=== PATIENT | male | born 2000 | race Caucasian/White ===

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

== ENCOUNTER 2022-10-25 10:27 | Outpatient (REF) | payer MEDICAID, SELFPAY ==
[2022-10-25 13:45] LABS: MANUAL DIFF FLAG NO
[2022-10-25 13:55] LABS: Basophils Absolute Auto 0.1 X10*3/uL (0.0-0.2); Basophils Percent Auto 1.3 % (0-2); Hematocrit 49.3 % (42.0-52.0); Hemoglobin 16.2 g/dl (14.0-18.0); Imm Gran Abs Auto 0.03 X10*3/uL (0.00-0.03); Imm Gran Pct Auto 0.4 % (0.0-0.4); Lymphocytes Absolute Auto 2.7 X10*3/uL (1.2-4.9); Lymphocytes Percent Auto 34.8 % (20-40); Mean Corpuscular HGB Conc 32.9 g/dl (31.0-36.0); Mean Corpuscular Hemoglobin 28.3 pg (27.0-33.0); Mean Corpuscular Volume 86.2 fL (80.0-98.0); Mean Platelet Volume 11.1 fL (9.4-12.4); Monocytes Absolute Auto 0.7 X10*3/uL (0.1-1.2); Monocytes Percent Auto 9.1 % (2-11); Neutrophils Absolute Auto 4.3 x10*3/uL (2.0-8.3); Neutrophils Percent Auto 54.4 % (45-73); Platelet Count 231 X10*3/uL (160-400); Red Blood Count 5.72 X10*6/uL (4.60-5.80); Red Cell Distribution Width 14.4 % (11.0-16.0); White Blood Count 7.8 X10*3/uL (4.8-10.8)
[2022-10-25 14:13] LABS: Estimated Average Glucose 105 mg/dL; Hemoglobin A1C 151.4048 umol/L; Hemoglobin A1c % 5.3 %
[2022-10-25 14:20] LABS: Alanine Aminotransferase 86 U/L (0-40); Albumin Level 4.8 g/dL (3.5-5.0); Alkaline Phosphatase 47 U/L (39-117); Anion Gap 14 (12-20); Aspartate Amino Transferase 146 U/L (5-37); Bilirubin Total 0.6 mg/dL (0.0-1.0); Blood Urea Nitrogen 14 mg/dL (9-16); Calcium 9.8 mg/dL (8.4-10.2); Carbon Dioxide 28 mmol/L (22-29); Chloride 103 mmol/L (96-108); Cholesterol 321 mg/dL; Estimated Glomerular Filt Rate > 60; Glucose Random 76 mg/dL (60-115); HDL Cholesterol 47 mg/dL; LDL Cholesterol Calculated 233 mg/dl; Sodium 141 mmol/L (135-145); Total Protein 7.7 g/dL (6.5-8.0); Triglycerides 208 mg/dL
[2022-10-25 14:34] LABS: Free T4 (Free Thyroxine) < 0.42 ng/dL (0.71-1.85); Thyroid Stimulating Hormone > 100.00 uIU/mL (0.32-4.0)
== END 2022-10-25 10:28 | disposition home or self-care (01) ==
LOC: HO.MANLDS 10:27
PROVIDERS: Visit Provider Physician Assistant
DX: E03.8 Other specified hypothyroidism (principal); E66.01 Morbid (severe) obesity due to excess calories; I10 Essential (primary) hypertension
CPT/HCPCS: 36415; 80053; 80061; 83036; 84439; 84443; 85025

== ENCOUNTER 2024-09-17 09:49 | Outpatient (REF) | payer SELFPAY ==
--- OUTSIDE RECORDS SUMMARY | 2024-09-17 10:36 | XMS_ITS | Continuity of Care Document ---
Author Organization [place] - [facility], [facility] Address [address] [place] [address] Assessment Encounter Date Assessment Date Assessment LastModified by Organization Details LastModified Time 09/17/2024 09/17/2024 Patient presented for medication refill. Patient tolerating medication well at current dose without adverse effects. Refilled as below. Discussed plan with patient, who expressed understanding . Follow up as noted below. [email or web address] Not available 09/17/2024 09:38:46 Plan of Treatment Reminders Order Date Submit Date Provider Last Modified By Organization Details Last Modified Time Details Appointments FOLLOW UP 15 2024 09:30A M PIPE PATTERSON Not available Not available Not available FOLLOW UP 15 2024 10:30A M PIPE PATTERSON Not available Not available Not available Lab CBC w/ auto diff 2024 025 [facility], [address] [place] [address], [id number], 09/17/2024 09:44:31 CMP, serum or plasma 2024 025 [facility], [address] [place] [address], [id number], 09/17/2024 09:44:31 lipid panel, serum 2024 025 [facility], [address] [place] [address], [id number], 09/17/2024 09:44:31 TSH + free T4, serum 2024 025 [facility], [address] [place] [address], [place], [id number], 09/17/2024 09:44:31 Referral None recorded . Procedures None recorded . Surgeries None recorded . Imaging None recorded . Medication Orders None recorded . Patient TargetsNo targets recorded. Patient InstructionsNo instructions recorded. Reason for Referral None Reported. Problems Name Problem SNOMED Code Status Onset Date Resolution Date Notes Provider Name and Address Organization Details Recorded Time Attention deficit hyperactiv ity disorder 735111219 Active 2020 Not Available [facility] 2 14:12:37 Hypertensi ve disorder 13381442 Active 2020 Not Available [facility] 2 14:12:37 Insomnia 839467562 Active 2020 Not Available [facility] 2 14:12:37 Hypothyroi dism 36775412 Active 2020 Not Available [facility] 2 14:12:37 Environmen lorraine allergy 734670841 Active 2020 Not Available [facility] 2 14:12:37 Asthma 262901053 Active 2020 Not Available [facility] 2 14:12:37 Morbid obesity 631866622 Active 2020 Not Available [facility] 2 14:12:37 Acute low back pain 708927305 Active 2022 PIPE PATTERSON [address] [place], [address], [facility] 3 09:44:05 Hyperlipid emia 30388860 Active 2022 PIPE PATTERSON [address] [place], [address], [facility] 3 13:56:56 Liver function tests outside reference range 776520568 Active 2022 PIPE PATTERSON [address] [place], [address], [facility] 3 13:57:10 Degenerati on of lumbar interverte bral disc 23951741 Active 2022 PIPE PATTERSON [address] [place], [address], [facility] 3 09:04:59 Eczema 09249340 Active 2022 Richard Boyle, DO [address] [place], [address], [facility] 3 11:28:32 Atopic dermatitis 02597029 Active 2022 Richard Boyle, DO [address] [place], [address], [facility] 3 11:28:50 Uncomplica megha moderate persistent asthma 300542830 Active 2024 PIPE PATTERSON [address] [place], [address], [facility] 5 09:44:19 Problem Notes None recorded. Procedures Surgical History Date Name Laterality Status Provider Name and Address Organization Details Recorded Time Adenoid Surgery completed Yamilet Rosenberg [facility] 07/14/2020 08:41:27 Imaging Results None recorded. Procedure Notes None recorded. Medical Equipment None Reported. Allergies No known drug allergies Medications Name Sig Start Date Stop Date Status Note LastModified by Organization Details LastModified Time cyclobenzap rine 10 mg tablet TAKE 1 TABLET (10 MG TOTAL) BY MOUTH 3 (THREE) TIMES A DAY NEEDED (MUSCLE). 09/17 completed Not Available Not Available Not Available amoxicillin 500 mg capsule TAKE 1 CAPSULE BY MOUTH 3 TIMES A DAY FOR 10 DAYS. TAKE WITH FOOD, YOGURT, PROBIOTIC S. FINISH ALL. 09/17 completed Not Available Not Available Not Available atorvastati n 40 mg tablet TAKE 1 TABLET BY MOUTH EVERY DAY active Not Available Not Available No t Available ibuprofen 800 mg tablet TAKE 1 TABLET BY MOUTH 3 (THREE) TIMES A DAY FOR 3 DAYS. THEN 3 TIMES A DAY NEEDED . 09/17 completed Not Available Not Available Not Available sulfamethox azole 800 mg-trimetho prim 160 mg tablet TAKE 1 TABLET BY MOUTH TWICE A DAY FOR 7 DAYS 09/17 completed Not Available Not Available Not Available levothyroxi ne 100 mcg tablet Take 1 tablet every day by oral route. 10/28 completed Not Available Not Available Not Available levothyroxi ne 125 mcg tablet Take 1 tablet every day by oral route. 10/28 completed Not Available Not Available Not Available levothyroxi ne 150 mcg tablet TAKE 1 TABLET BY MOUTH EVERY DAY FOR 30 DAYS active Not Available Not Available No t Available diclofenac sodium 75 mg tablet,jorge a yed release Take 1 tablet twice a day by oral route for 14 days. 10/25 completed Not Available Not Available Not Available methylpredn isolone 4 mg tablets in a dose pack TAKE 6 TABLETS THEN DECREASE BY 1 TABLET A DAY PER PACKAGE INSTRUCTI ONS 09/17 completed Not Available Not Available Not Available fluocinonid e 0.1 % topical cream APPLY THIN LAYER TO AFFECTED AREA ONCE DAILY 09/17 completed Not Available Not Available Not Available Zepbound 5 mg/0.5 mL subcutaneou s pen injector INJECT 0.5 ML (5 MG TOTAL) UNDER THE SKIN EVERY 7 (SEVEN) DAYS FOR 28 DAYS. active Not Available Not Available No t Available Zepbound 2.5 mg/0.5 mL subcutaneou s pen injector INJECT 0.5 ML (2.5 MG TOTAL) UNDER THE SKIN EVERY 7 DAYS 09/17 completed Not Available Not Available Not Available Vitals Date Recorded Body height Body mass index (BMI) Body weight Heart rate Oxygen saturation Oxygen saturation in Arterial blood by Pulse oximetry Systolic blood pressure Diastolic blood pressure Provider Name and Address Organization Details Last Updated DateTime 5 190.5 cm 56.1 kg/m2 067806. 33 g 66 /min 97 % 97 % 134 mm[Hg] 86 mm[Hg] [facility] 09:33:32 Social History Question Answer Notes LastModified by Organizat ion Details LastModified Time Tobacco Smoking Status Never Smoker [facility] 07/14/2020 10:24:57 What Was The Date Of Your Most Recent Tobacco Screening? 09/17/2024 [email or web address] Information not available 09/17/2024 Do You Or Have You Ever Used Any Other Forms Of Tobacco Or Nicotine? No [email or web address] Information not available 10/25/2022 Sex: Unknown Functional Status None recorded. Mental Status None recorded. Family History Relationship Description Onset Age of this Age Resolved Age Notes LastModified by Organization Details LastModified Time Paternal Grandfather Type 2 diabetes mellitus [email or web address] Not available 2020 08:42:59 Paternal Grandfather Hyperlipidem ia jvanasse Not available 2020 08:43:12 Paternal Grandfather Malignant tumor of colon jvanasse Not available 2020 08:43:23 Paternal Grandmother Type 2 diabetes mellitus jvanasse Not available 2020 08:42:59 Father Hyperlipidem ia jvanasse Not available 2020 08:43:31 Paternal Uncle Malignant tumor of testis jvanasse Not available 2020 08:44:03 Paternal Uncle Fredi's disease jvanasse Not available 2020 08:44:15 Brother Attention deficit hyperactivit y disorder [email or web address] Not available 07/14 08:44:24 Maternal Grandmother Neoplasm of ovary jvanasse Not available 2020 08:44:36 Maternal Grandmother Malignant neoplastic disease jvanasse Not available 2020 08:44:49 Maternal Grandfather Malignant tumor of colon jvanasse Not available 2020 08:45:13 Mother Hypothyroidi sm jvanasse Not available 2020 08:45:27 Mother Pulmonary embolism jvanasse Not available 2020 08:45:39 Mother Bypass of stomach jvanasse Not available 2020 08:45:50 Mother Attention deficit hyperactivit y disorder jvanasse Not available 07/14 08:45:57 Medical History No medical history recorded. Immunizations Vaccine Type Date Status Note Provider Nam e and Address Organization Details Recorded Time COVID-19, mRNA, LNP-S, PF, 30 mcg/0.3 mL dose 09/20/2020 completed [place] Arguello [facility] 01/15/2021 15:58:49 COVID-19, mRNA, LNP-S, PF, 30 mcg/0.3 mL dose 10/11/2020 completed Roseann valles [facility] 01/15/2021 15:58:57 COVID-19, mRNA, LNP-S, PF, 30 mcg/0.3 mL dose 06/28/2021 completed Yamilet valles [facility] 06/29/2021 14:14:09 Past Encounters Encounter ID Performer Location Encounter Start Date Encounter Closed Date Diagnosis/Indication Diagnosis SNOMED-CT Code Diagnosis ICD10 Code Diagnosis Note [id number] Richard Boyle [facility] [address],Anisa kraft [facility] [place] [address] 09/17/2024 09:24:14 09/17/2024 09:47:01 Renewal of prescription 409590160 Z76.0 will refill after lab work comes back Depression screening 171 056228 Z13.31 negative Hypothyroidism 39146396 E03.8 needs with Hypertensive disorder 38 838636 I10 agreed to lab work Liver func tion tests outside reference range 086918577 R94.5 will recheck levels Morbid obesity 210644434 E66.01 agreed to lab workoverdu e for it Hyperlipidemia 84077677 E78.5 needs lab work Uncomplica megha moderate persistent asthma 668162005 J45.40 very stable Health Concerns Section Related Observation LastModified by Organization Detai ls LastModified Time None Recorded Concern Status LastModified by Organization Details LastModified Time None Recorded Payers Encounter Date Sequence Insurance Name Policy Number Policy Ramirez Covered Member ID Ramirez Member ID Guarantor Name 09/17/2024 1 [place] [id number] Niall Sawyer [id number] Niall Sawyer Notes Date Note Type Note Provider Name a nd Address Organization Details Recorded Time 09/17/2024 text/html medications HLD: the patient needs lab work, is currently on the atorvastatin 40 mg Obesity: the patient reports that he was started on Zepbound 5 mg, 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 The patient denies suicidal ideation, thoughts of hurting themselves or others. Their mood is appropriate, they show good judgement and clear understanding of the conversation. They are orientated to time, place and person. They are not expressing any concerning thoughts or actions that would need further investigation and treatment for mental health. PIPE PATTERSON [address] [place] [address], [phone], [facility] 09/17/2024 09:47:00
--- OUTSIDE RECORDS SUMMARY | 2024-09-17 10:36 | XMS_ITS | Data Portability ---
Author Organization [facility] Home Service Address [address] [facility] [place] [address] Assessment Encounter Date Assessment Date Assessment LastModified by Organization Details LastModified Time 07/14/2020 07/14/2020 [address] [place] [address] (HASH SLINGER) MDM MODERATE MUST MEET 2 OUT OF 3 ELEMENTS: PROBLEMS, DATA OR RISK ELEMENT 1: PROBLEMS ADDRESSED OR 2 OR MORE STABLE CHRONIC ILLNESSES OR OR OR ELEMENT 2: DATA MUST MEET 1 OF 3 CATEGORIES CATEGORY 1: REVIEW OF PRIOR EXTERNAL NOTES, REVIEW OF RESULTS, ORDERING OF EACH TEST, ASSESSMENT REQUIRING INDEPENDENT HISTORIAN OR CATEGORY 2: OR CATEGORY 3: ELEMENT 3: RISK RISK OF COMPLICATIONS AND/OR MORBIDITY OR MORTALITY OF PATIENT MANAGEMENT PROVIDER MUST THOROUGHLY DOCUMENT EACH ELEMENT THAT IS COVERED Not available 07/14/2020 10:54:38 01/15/2021 01/15/20[place] [id number] [place] [id number] (HASH SLINGER) MDM MODERATE MUST MEET 2 OUT OF 3 ELEMENTS: PROBLEMS, DATA OR RISK ELEMENT 1: PROBLEMS ADDRESSED 1 OR MORE CHRONIC ILLNESS WITH EXACERBATION OR 2 OR MORE STABLE CHRONIC ILLNESSES OR 1 UNDIAGNOSED NEW PROBLEM OR 1 ACUTE ILLNESS W/SYMPTOMS OR 1 ACUTE COMPLICATED INJURY ELEMENT 2: DATA MUST MEET 1 OF 3 CATEGORIES CATEGORY 1: REVIEW OF PRIOR EXTERNAL NOTES, REVIEW OF RESULTS, ORDERING OF EACH TEST, ASSESSMENT REQUIRING INDEPENDENT HISTORIAN OR CATEGORY 2: INDEPENDENT INTERPRETATION OF TESTS BY ANOTHER PHYSICIAN OR SPECIALIST OR CATEGORY 3: DISCUSSION OF MGT OR TEST INTERPRETATION W/EXTERNAL PHYSICIAN OR SPECIALIST ELEMENT 3: RISK RISK OF COMPLICATIONS AND/OR MORBIDITY OR MORTALITY OF PATIENT MANAGEMENT PROVIDER MUST THOROUGHLY DOCUMENT EACH ELEMENT THAT IS COVERED Not available 01/15/2021 16:22:59 01/31/2023 01/31/2023 [id number] [place] [id number] (HASH SLINGER) : MDM LOW MUST MEET 2 OF 3 ELEMENTS: PROBLEMS, DATA OR RISK ELEMENT 1: PROBLEMS ADDRESSED (LOW): 2 OR MORE SELF-LIMITED OR MINOR PROBLEMS OR 1 STABLE CHRONIC ILLNESS OR 1 ACUTE UNCOMPLICATED ILLNESS OR INJURY ELEMENT 2: DATA TO BE REVISED AND ANALYZED (LOW) MUST MEET 1 OF 2 CATEGORIES: CATEGORY 1. REVIEW OF PRIOR EXTERNAL NOTES/RESULTS, ORDERING OF TEST(S) CATEGORY 2. ASSESSMENT REQUIRING INDEPENDENT HISTORIAN(S) INCLUDE WHO THE HISTORIAN IS AND RELATION TO PT AND WHY PT IS UNABLE TO GIVE COMPLETE HISTORY ELEMENT 3: RISK (LOW) RISK OF COMPLICATIONS AND/OR MORBIDITY OR MORTALITY OF PATIENT MANAGEMENT PROVIDER MUST THOROUGHLY DOCUMENT ALL OF THE ELEMENTS COVERED Not available 01/31/2023 11:28:24 09/17/2024 09/17/2024 Patient presente d for medication refill. Patient tolerating medication well at current dose without adverse effects. Refilled as below. Discussed plan with patient, who expressed understanding. Follow up as noted below. [email or web address] Not available 09/17/2024 09:38:46 Plan of Treatment Reminders Order Date Submit Date Provider Last Modified By Organization Details Last Modified Time Details Appointments FOLLOW UP 2024 09:30A M PIPE PATTERSON Not available Not available Not available FOLLOW UP 2024 10:30A M PIPE PATTERSON Not available Not available Not available Lab CBC w/ auto diff 2024 025 [facility], [address] [place] [address], [id number], 09/17/2024 09:44:31 CMP, serum or plasma 2024 025 [facility], [address] [place] [address], [id number], 09/17/2024 09:44:31 lipid panel, serum 2024 025 [facility], [address] [place] [address], [id number], 09/17/2024 09:44:31 TSH + free T4, serum 2024 025 [facility], [address] [place] [address], [id number], 09/17/2024 09:44:31 hemoglobi n A1c, QN, blood 2022 023 [facility], [address] [place] [address], [id number], 2022 11:40:25 lipid panel, serum 2022 023 [facility], [address] [place] [address], [id number], 2022 11:40:25 CMP, serum or plasma 2022 023 [facility], [address] [place] [address], [id number], 2022 11:40:25 CBC w/ auto diff 2022 023 [facility], [address] [place] [address], [id number], 2022 11:40:26 TSH + free T4, serum 2022 023 [facility], [address] [place] [address], [id number], 2022 11:40:25 TSH, serum or plasma 2020 021 [facility], [address] [place] [address], [id number], 01/15/2021 16:27:56 CMP, serum or plasma 2020 021 [facility], [address] [place] [address], [id number], 07/17/2020 11:28:02 TSH + free T4, serum 2020 021 [facility], [address] [place] [address], [id number], 07/17/2020 11:28:02 Referral None recorded. Procedures None recorded. Surgeries None recorded. Imaging XR, lumbosacr al spine, 2 or 3 view 2022 023 [email or web address] Not available 11/08/2022 08:49:37 Medication Orders fluocinon joselo 0.1 % topical cream 2022 023 [email or web address] [facility]2024, [address] [place] [address], [id number], 09/17/2024 09:28:11 Medrol (Mike) 4 mg tablets in a dose pack 2022 023 [email or web address] [facility]2024, [address] [place] [address], [id number], 09/17/2024 09:28:19 diclofena c sodium 75 mg tablet,de layed release 2020 021 [email or web address] [facility]2024, [address] [place], [address], 10/25/2022 09:36:12 Patient TargetsNo targets recorded. Patient Instructions Encounter Date Encounter Id Patient Instructions Last Modified By Organization Details Last Modified Time 01/15/2021 [id number] hypothyroidism: care instructions Not available 01/15/2021 16:26:47 01/31/2023 [id number] hypothyroidism: care instructions Not available 01/31/2023 11:33:13 high cholesterol : care instructions Not available 01/31/2023 11:33:13 Reason for Referral None Reported. Results Created Date Observation Date Name Description Value Unit Range Abnormal Flag Note LastModifiedBy Organization Detail LastModifiedTime 11/09/1911/08/2022 US, abdom en, compl ete No observ ation record ed. [facility] [address] [facility] [address], [place], [address], 01/31/2023 11:19:56 11/11/19 23 11/08/2022 XR, lumbo sacra l spine , 2 or 3 view No observ ation record ed. [facility] [address] [place] [address], [place], [address], 01/31/2023 11:19:56 Result Notes None recorded. Problems Name Problem SNOMED Code Status Onset Date Resolution Date Notes Provider Name and Address Organization Details Recorded Time Attention deficit hyperactiv ity disorder 350563352 Active 2020 Not Available [facility] 2 14:12:37 Hypertensi ve disorder 49971372 Active 2020 Not Available [facility] 2 14:12:37 Insomnia 852832587 Active 2020 Not Available [facility] 2 14:12:37 Hypothyroi dism 19591095 Active 2020 Not Available [facility] 2 14:12:37 Environmen lorraine allergy 497878399 Active 2020 Not Available [facility] 2 14:12:37 Asthma 458510144 Active 2020 Not Available [facility] 2 14:12:37 Morbid obesity 353234221 Active 2020 Not Available [facility] 2 14:12:37 Acute low back pain 233881922 Active 2022 PIPE PATTERSON [address] [place] [address], [address], [facility] 3 09:44:05 Hyperlipid emia 98503218 Active 2022 PIPE PATTERSON [address] [place] [address], [address], [facility] 3 13:56:56 Liver function tests outside reference range 065425747 Active 2022 PIPE PATTERSON [address] [place] [address], [address], [facility] 3 13:57:10 Degenerati on of lumbar interverte bral disc 35443993 Active 2022 PIPE PATTERSON [address] [place] [address], [address], [facility] 3 09:04:59 Eczema 23566261 Active 2022 Richard Boyle DO [address] [place], [address], [facility] 3 11:28:32 Atopic dermatitis 60448638 Active 2022 Richard Boyle DO [address] [place], [address], [facility] 3 11:28:50 Uncomplica megha moderate persistent asthma 745625453 Active 2024 PIPE PATTERSON [address] [place], [address], [facility] 5 09:44:19 Problem Notes None recorded. Procedures Surgical History Date Name Laterality Status Provider Name and Address Organization Details Recorded Time Adenoid Surgery completed Yamilet Rosenberg [facility] 07/14/2020 08:41:27 Imaging Results Imaging Date Name Status LastModified by Organization Details LastModified Time 11/08/2022 US, abdomen, complete completed [address], [place], [address], 01/31/2023 11:19:56 11/08/2022 XR, lumbosacral spine, 2 or 3 view [address], [address], 01/31/2023 11:19:56 Procedure Notes None recorded. Medical Equipment None [...] Recorded Body height Body mass index (BMI) [Percentile] Per age and sex Body mass index (BMI) Body weight Heart rate Oxygen saturation Oxygen saturation in Arterial blood by Pulse oximetry Systolic blood pressure Diastolic blood pressure Provider Name and Address Organization Details Last Updated DateTime 1 187.96 cm 99 % 56.2 kg/m2 514675. 3 g 88 /min 98 % 98 % 150 mm[Hg] 82 mm[Hg] Yamilet Rosenberg [facility] 1 10:25:52 Date Recorded Body height Body mass index (BMI) [Percentile] Per age and sex Body mass index (BMI) Body weight Oxygen saturation Oxygen saturation in Arterial blood by Pulse oximetry Heart rate Systolic blood pressure Diastolic blood pressure Provider Name and Address Organization Details Last Updated DateTime 1 187.96 cm 99 % 54 kg/m2 619394. 67 g 97 % 97 % 107 /min 120 mm[Hg] 80 mm[Hg] Roseann Pompa [facility] 1 15:54:57 Date Recorded Body height Body mass index (BMI) [Percentile] Per age and sex Body mass index (BMI) Body weight Heart rate Oxygen saturation Oxygen saturation in Arterial blood by Pulse oximetry Systolic blood pressure Diastolic blood pressure Provider Name and Address Organization Details Last Updated DateTime 3 190.5 cm 99 % 59.4 kg/m2 011970. 38 g 100 /min 97 % 97 % 110 mm[Hg] 74 mm[Hg] Nadine Rushing [facility] 3 09:38:07 Date Recorded Body height Body mass index (BMI) Body weight Oxygen saturation Oxygen saturation in Arterial blood by Pulse oximetry Heart rate Systolic blood pressure Diastolic blood pressure Provider Name and Address Organization Details Last Updated DateTime 3 190.5 cm 57.2 kg/m2 473954. 31 g 97 % 97 % 73 /min 120 mm[Hg] 82 mm[Hg] Richard Boyle, DO [address] [place], [address], [facility] 3 10:59:40 Date Recorded Body height Body mass index (BMI) Body weight Heart rate Oxygen saturation Oxygen saturation in Arterial blood by Pulse oximetry Systolic blood pressure Diastolic blood pressure Provider Name and Address Organization Details Last Updated DateTime 5 190.5 cm 56.1 kg/m2 935595. 33 g 66 /min 97 % 97 % 134 mm[Hg] 86 mm[Hg] Samantha Kelly [facility] 5 09:33:32 Social History Question Answer Notes LastModified by Organizat ion Details LastModified Time Tobacco Smoking Status Never Smoker Yamilet Rosenberg [facility] 07/14/2020 10:24:57 What Was The Date Of Your Most Recent Tobacco Screening? 09/17/2024 [email or web address] Information not available 09/17/2024 Do You Or Have You Ever Used Any Other Forms Of Tobacco Or Nicotine? No [email or web address] Information not available 10/25/2022 Sex: Unknown Functional [...] PF, 30 mcg/0.3 mL dose 09/20/2020 completed Roseann Pompa null, [facility] 01/15/2021 15:58:49 COVID-19, mRNA, LNP-S, PF, 30 mcg/0.3 mL dose 10/11/2020 completed Roseann Pompa null, [facility] 01/15/2021 15:58:57 COVID-19, mRNA, LNP-S, PF, 30 mcg/0.3 mL dose 06/28/2021 completed Yamilet Rosenberg null, [facility] 06/29/2021 14:14:09 Past Encounters Encounter ID Performer Location Encounter Start Date Encounter Closed Date Diagnosis/Indication Diagnosis SNOMED-CT Code Diagnosis ICD10 Code Diagnosis Note [id number] Richard Boyle [facility] [address] [facility], [place] [address] 07/14/2020 10:15:44 07/14/2020 11:07:58 Hypertensive disorder 11676855 I10 will need to keep a close eye in this and will need to have him check it from time to time Hypothyroidism 71747449 E03.9 will need to be checked as this has not been done in years Attention deficit hyperactivity disorder 847678642 F90.9 states is no longer on any meds Insomnia 971606869 G47.0 0 was apparent while on stimulants for ADD since off he sleeps fine now [id number] Richard Boyle [facility] [address] [facility] [address] 01/15/2021 15:20:11 01/15/2021 16:33:29 Hypertensive disorder 02459437 I10 will need to keep a close eye in this and will need to have him check it from time to time Hypothyroidism 72159697 E03.9 last lab good taking med without problems Strain of left pectoral muscle 2685528842 4682013 S29.011A [id number] Richard Boyle [facility] [address] [facility] [address] 10/25/2022 09:28:23 10/25/2022 10:12:18 Acute low back pain 760098606 M54.59 agreed to XR Hypothyroidism 20623741 E03.8 needs his thyroid retested, overdue Morbid obesity 714322005 E66.01 agreed to lab workoverdu e for it Hypertensive disorder 38 530451 I10 agreed to lab work [id number] Richard Boyle [facility] [address] [facility], [place] [address] 01/31/2023 10:48:13 01/31/2023 11:39:18 Hyperlipidemia 30198939 E78.5 we will rechk Hypertensive disorder 38 481201 I10 will need to keep a close eye in this and will need to have him check it from time to time Hypothyroidism 98506829 E03.8 last lab good taking med without problems Atopic dermatitis 471670 01 L20.9 apply bid [id number] Richard Boyle [facility] [address] [facility] [address] [place] [address] 09/17/2024 09:24:14 09/17/2024 09:47:01 Renewal of prescription 384550026 Z76.0 will refill after lab work comes back Depression screening 171 251594 Z13.31 negative Hypothyroidism 77899567 E03.8 needs with Hypertensive disorder 38 293345 I10 agreed to lab work Liver func tion tests outside reference range 641296498 R94.5 will recheck levels Morbid obesity 115306456 E66.01 agreed to lab workoverdu e for it Hyperlipidemia 41924060 E78.5 needs lab work Uncomplica megha moderate persistent asthma 898283520 J45.40 very stable Health Concerns Section Related Observation LastModified by Organization Detai ls LastModified Time None Recorded Concern Status LastModified by Organization Details LastModified Time None Recorded Advance Directives Directive None Recorded Payers Encounter Date Sequence Insurance Name Policy Number Policy Ramirez Covered Member ID Ramirez Member ID Guarantor Name 07/14/2020 1 [place] [facility] Niall Crowder Digna [id number] Niall Digna 01/15/2021 1 [place] [facility] Niall Crowder Digna [id number] Niallbret Sawyer 10/25/2022 1 [place] [id number] Niall Sawyer [id number] Niall Sawyer 01/31/2023 1 [place] [id number] 03 Niall Sawyer [id number] Niall Sawyer 09/17/2024 1 [place] [id number] 03 Niall Sawyer [id number] Niall Digna Notes Date Note Type Note Provider Name a nd Address Organization Details Recorded Time 07/14/2020 text/html Hypertension F/UReported bypatient.Medicati ons:taking medications as directed; no side effects from medication Lifestyle:regular exercise; limiting/avoiding salt; compliant with low salt diet Associated Symptoms:no dizziness; no lightheadedness; no chest pain; no shortness of breath; no palpitations; no edema; no calf pain with exertion; no headache here for rechk of his bp and to chk lab etc Richard Boyle DO [address] [place], [address], [facility] 07/14/2020 10:55:48 01/15/2021 text/html here for rechk h as lost 17 lbs according to our scalehas been having pain in his left pectoralis muscle iup into shoulder and upper armpain has been present almost a year Richard Boyle DO [address] [place], [address], [facility] 01/15/2021 16:28:21 10/25/2022 text/html c/o lumbar pain patient is morbidly obese at 475 lbs with low back pain starting several months ago after mulching with his fatherpain only with movement and pressure on the lumbar spinefine at rest UC gave him MSK relaxer and ibu without relief of symptoms he may have degenerative changes related to weight exacerbated by a stress injury from the yard workcannot exclude discogenic disease either agreed to XR PIPE PATTERSON [address] [place], [address], [facility] 10/25/2022 09:53:15 01/31/2023 text/html here for rechchalino carreno nd is doing fairadmits to be feeling down at timeswgt is an issue Richard Boyle DO [address] [facility], [place], [address], [facility] 01/31/2023 11:34:49 09/17/2024 text/html medications HLD: the patient needs lab work, is currently on the atorvastatin 40 mg Obesity: the patient reports that he was started on Zepbound 5 mg, was [facility] by [facility] 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 PIPE PATTERSON [address] [facility], [place], [address], [facility] 09/17/2024 09:47:00
--- OUTSIDE RECORDS SUMMARY | 2024-09-17 10:36 | XMS_ITS | Clinical Summary ---
Author Organization [facility] up Address [address] [place] [address] Phone Care Team Providers Care Commissary Assistant Name Role Phone Richard Boyle DO Primary Care Provider [phone] Allergies No known active allergies Medications tirzepatide, weight loss, (Zepbound) 5 mg/0.5 mL injectionIndica tions:Class 3 severe obesity due to excess calories without serious comorbidity with body mass index (BMI) of 50.0 to 59.9 in adult ([facility] V24, [facility] V28) Inject 0.5 mL (5 mg total) under the skin every 7 (seven) days for 28 days. 2 mL 5 09/28/19 25 Active tirzepatide, weight loss, (Zepbound) 2.5 mg/0.5 mL injectionIndica tions:Class 3 severe obesity due to excess calories without serious comorbidity with body mass index (BMI) of 50.0 to 59.9 in adult ([facility] V24, [facility] V28) Inject 0.5 mL (2.5 mg total) under the skin every 7 (seven) days. 2 mL 5 08/31/19 25 Discontinued Active Problems Problem Noted Date Diagnosed Date Class 3 severe obesity with body mass index (BMI) of 50.0 to 59.9 in adult ([facility] V24, [facility] V28) 07/28/2024 Encounters Date Type Department Care Team Description 08/30/2024 9:30 AM EDT Telemedicine Bariatric Surgery - [address] [place] [address] Class 3 severe obesity with body mass index (BMI) of 50.0 to 59.9 in adult, unspecified obesity type, unspecified whether serious comorbidity present ([facility] V24, [facility] V28) (Primary Dx) 07/28/2024 10:30 AM EDT Office Visit Bariatric Surgery [address] [phone] Brisa Irving PA Class 3 severe obesity due to excess calories without serious comorbidity with body mass index (BMI) of 50.0 to 59.9 in adult ([facility] V24, [facility] V28) (Primary Dx) from Last 3 Months Social History Tobacco Use Types Packs/Day Years Used Date Smoking Tobacco: Never Assessed Sex and Gender Information Value Date Recorded Sex Assigned at Not on file Legal Sex Male 3:47 PM EDT Gender Identity Not on file Sexual Orientation Not on file Last Filed Vital Signs Vital Sign Reading Time Taken Comments Blood Pressure 132/77 07/28/2024 10:30 AM EDT Pulse 90 07/28/2024 10:30 AM EDT Temperature 36.6 ??C (97.8 ??F) 07/28/2024 10:30 AM E DT Respiratory Rate - - Oxygen Saturation - - Inhaled Oxygen Concentration - - Weight 208 kg (459 lb) 08/30/2024 9:00 AM EDT Height 190.5 cm (6' 3 ) 07/28/2024 10:30 AM EDT Body Mass Index 57.37 07/28/2024 10:30 AM EDT Plan of Treatment Upcoming Encounters Date Type Department Care Team (Late st Contact Info) Description 2024 10:00 AM EDT Office Visit Bariatric Surgery - [address] [address] Brisa Irving PA [address] [address] 11/15/2024 9:30 AM EDT Telemedicine Bariatric Surgery - [address] [phone] Nelia Khoury, RD [address] [address] Health Maintenance Due Date Last Done Comments HPV Vaccines (1 - Male 3-dose series) 2016 Meningococcal B Vaccine (1 of 2 - Standard) 2017 COVID-19 Vaccine (4 - season) 2024 06/28/2021, 10/11/2020, 09/20/2020 Cholesterol Screening (Lipid Panel) 03/05/2024 Depression Screening 03/05/2024 HIV Screening 03/05/2024 Hepatitis C Screening 03/05/2024 Social Influencers of Health Screening 03/05/2024 Influenza Vaccine (Season Ended) 2025 DTaP,Tdap,and Td Vaccines (8 - Td or Tdap) 07/27/2029 07/28/2019, 11/12/2012, 11/01/2005, Additional history exists Hepatitis B Vaccines Completed 08/10/2002, 2001, 2001 HIB Vaccines Completed 11/01/2002, 04/19, 03/10/2002 Pneumococcal Vaccine: Pediatrics (0 to 5 Years) and At-Risk Patients (6 to 64 Years) Completed 05/13/2003, 11/01/2002, 03/10/2002, Additional history exists MMR Vaccines Completed 11/01/2005, 02/11/2003 IPV Vaccines Completed 10/29/2006, 10/17, 03/10/2002, Additional history exists Varicella Vaccines Completed 10/30/2007, 11/01/2002 Hepatitis A Vaccines Aged Out No long er eligible based on patient's age to complete this topic Meningococcal ACWY Vaccine Aged Out N o longer eligible based on patient's age to complete this topic RSV Immunization Patients Under 20 months Aged Out No longer eligible based on patient's age to complete this topic Insurance [facility]) Care Teams Commissary Assistant Relationship Specialty Start Date End Date Richard Boyle DO [address] [facility] [place], [place] PCP - General Internal Medicine 07/28/24
[2024-09-17 13:25] LABS: MANUAL DIFF FLAG NO
[2024-09-17 13:52] LABS: Basophils Absolute Auto 0.1 X10*3/uL (0.0-0.2); Basophils Percent Auto 0.5 % (0-2); Hematocrit 42.5 % (42.0-52.0); Imm Gran Abs Auto 0.03 X10*3/uL (0.00-0.03); Imm Gran Pct Auto 0.3 % (0.0-0.4); Lymphocytes Absolute Auto 2.3 X10*3/uL (1.2-4.9); Lymphocytes Percent Auto 23.8 % (20-40); Mean Corpuscular HGB Conc 32.9 g/dl (31.0-36.0); Mean Corpuscular Hemoglobin 28.3 pg (27.0-33.0); Mean Corpuscular Volume 85.9 fL (80.0-98.0); Mean Platelet Volume 11.2 fL (9.4-12.4); Monocytes Absolute Auto 0.9 X10*3/uL (0.1-1.2); Monocytes Percent Auto 8.7 % (2-11); Neutrophils Absolute Auto 6.5 x10*3/uL (2.0-8.3); Neutrophils Percent Auto 66.7 % (45-73); Platelet Count 268 X10*3/uL (160-400); Red Blood Count 4.95 X10*6/uL (4.60-5.80); Red Cell Distribution Width 12.7 % (11.0-16.0); White Blood Count 9.8 X10*3/uL (4.8-10.8)
[2024-09-17 14:13] LABS: Alanine Aminotransferase 45 U/L (0-40); Albumin Level 4.7 g/dL (3.5-5.0); Alkaline Phosphatase 52 U/L (39-117); Anion Gap 15 (12-20); Aspartate Amino Transferase 43 U/L (5-37); Bilirubin Total 0.3 mg/dL (0.0-1.0); Blood Urea Nitrogen 16 mg/dL (9-16); Calcium 9.7 mg/dL (8.4-10.2); Carbon Dioxide 25 mmol/L (22-29); Chloride 106 mmol/L (96-108); Cholesterol 163 mg/dL (<200); Estimated Glomerular Filt Rate > 60; Free T4 (Free Thyroxine) 0.67 ng/dL (0.71-1.85); Glucose Random 84 mg/dL (60-115); HDL Cholesterol 38 mg/dL (>40); LDL Cholesterol Calculated 103 mg/dL (<100); Sodium 142 mmol/L (135-145); Thyroid Stimulating Hormone 48.32 uIU/mL (0.32-4.0); Total Protein 7.6 g/dL (6.5-8.0); Triglycerides 114 mg/dL (<150)
== END 2024-09-17 09:50 | disposition home or self-care (01) ==
LOC: HO.MANLDS 09:49
PROVIDERS: Visit Provider Physician Assistant
DX: E03.8 Other specified hypothyroidism (principal); E78.5 Hyperlipidemia, unspecified
CPT/HCPCS: 36415; 80053; 80061; 84439; 84443; 85025

== ENCOUNTER 2025-01-03 10:51 | Outpatient (REF) | payer BC, SELFPAY ==
--- OUTSIDE RECORDS SUMMARY | 2025-01-03 11:55 | XMS_ITS | Encounter Summary ---
Author Organization [facility] Address [address] [place] [address] Phone Care Team Providers Care Country Singer Name Role Phone Richard Boyle DO Primary Care Provider [phone] Bigda, Richard Hebert DO Primary Care Provider [phone] Bigda, Richard Hebert DO Unavailable Bigda, Richard Hebert DO Unavailable Encounter Details Date Type Department Care Team (Late st Contact Info) Description 04/07/2019 Ancillary Orders Virtual Department [address] [place] [address] Eber Reynolds PA [address] [place] [address] [email or web address] Social History Tobacco Use Types Packs/Day Years Used Date Smoking Tobacco: Never Assessed Sex and Gender Information Value Date Recorded Sex Assigned at Not on file Legal Sex Male 5:37 AM EST Gender Identity Not on file Sexual Orientation Not on file documented as of this encounter Plan of Treatment Not on file documented as of this encounter Visit Diagnoses Not on filedocumented in this encounter Care Teams Country Singer Relationship Specialty Start Date End Date Richard Boyle DO PCP - General 03/04/17 05/24/22 Richard Boyle DO [email or web address] PCP - General Internal Medicine 05/25/22 Richard Boyle DO [email or web address] 05/25/22 Richard Boyle DO [address] [place] [id number] [email or web address] Insurance Assigned Provider 07/23/19 10/05/22 documented as of this encounter Additional Source Comments The information contained in this document represents components of the legal health record. It is not the complete legal health record.[facility]
--- OUTSIDE RECORDS SUMMARY | 2025-01-03 11:55 | XMS_ITS | Clinical Summary ---
Author Organization [facility] up Address [address] [place] [address] Phone Care Team Providers Care Hydraulic Auto Jack Mechanic Name Role Phone Richard Boyle DO Primary Care Provider [phone] Allergies No known active allergies Medications tirzepatide, weight loss, (Zepbound) 10 mg/0.5 mL injectionIndica tions:Morbid obesity (CMS/HCC V24, CMS/HCC V28) Inject 0.5 mL (10 mg total) under the skin every 7 (seven) days. 2 mL 5 01/21/20 25 Active tirzepatide, weight loss, (Zepbound) 7.5 mg/0.5 mL injectionIndica tions:Morbid obesity (CMS/HCC V24, CMS/HCC V28) Inject 0.5 mL (7.5 mg total) under the skin every 7 (seven) days. 2 mL 5 12/22/19 25 Discontinued Active Problems Problem Noted Date Diagnosed Date Class 3 severe obesity witho ut serious comorbidity with body mass index (BMI) of 50.0 to 59.9 in adult (CMS/HCC V24, CMS/HCC V28) 07/28/2024 Encounters Date Type Department Care Team Description 11/15/2024 9:30 AM EDT Telemedicine Bariatric Surgery - [address] [place] [address] Nelia Khoury, BRAEDEN Class 3 severe obesity without serious comorbidity with body mass index (BMI) of 50.0 to 59.9 in adult, unspecified obesity type (CMS/HCC V24, CMS/HCC V28) (Primary Dx) from Last 3 Months [...] 90 07/28/2024 10:30 AM EDT Temperature 36.6 C (97.8 F) 07/28/2024 10:30 AM EDT Respiratory Rate - - Oxygen Saturation - - Inhaled Oxygen Concentration - - Weight 199 kg (438 lb) 11/15/2024 9:00 AM EDT Height 190.5 cm (6' 3 ) 07/28/2024 10:30 AM EDT Body Mass Index 54.75 07/28/2024 10:30 AM EDT Plan of Treatment Upcoming Encounters Date Type Department Care Team (Late st Contact Info) Description 02/04/2025 12:00 PM EDT Telemedicine Bariatric Surgery [address] [phone] Nelia Khoury, RD [address] [phone] 02/09/2025 9:00 AM EDT Office Visit Bariatric Surgery [address] [phone] Brisa Irving PA [address] [address] Health Maintenance Due Date Last Done Comments HPV Vaccines (1 - Male 3-dose series) 2016 Meningococcal B Vaccine (1 of 2 - Standard) 2017 COVID-19 Vaccine ( season) 2024 06/28/2021, 10/11/2020, 09/20/2020 Cholesterol Screening (Lipid Panel) 03/05/2024 HIV Screening 03/05/2024 Hepatitis C Screening 03/05/2024 Social Influencers of Health Screening 03/05/2024 Depression Screening 05/19/2024 Influenza Vaccine (#1) 2025 DTaP,Tdap,and Td Vaccines (8 - Td or Tdap) 07/27/2029 07/28/2019, 11/12/2012, 11/01/2005, Additional history exists Hepatitis B Vaccines Completed 08/10/2002, 2001, 2001 HIB Vaccines Completed 11/01/2002, 04/19, 03/10/2002 Pneumococcal Vaccine: Pediatrics (0 to 5 Years) and At-Risk Patients (6 to 49 Years) Completed 05/13/2003, 11/01/2002, 03/10/2002, Additional history [...] patient's age to complete this topic Insurance [facility] ([facility]) Care Teams Hydraulic Auto Jack Mechanic Relationship Specialty Start Date End Date Richard Boyle DO [address] [facility] [address] [place] PCP - General Internal Medicine 07/28/24
[2025-01-03 15:23] LABS: Free T4 (Free Thyroxine) < 0.42 ng/dL (0.71-1.85)
== END 2025-01-03 10:52 | disposition home or self-care (01) ==
LOC: HO.MANLDS 10:51
PROVIDERS: Visit Provider Physician Assistant
DX: E03.8 Other specified hypothyroidism (principal)
CPT/HCPCS: 36415; 84439; 84443; 84445; 86376

== ENCOUNTER 2025-03-30 10:01 | Outpatient (REF) | payer MEDICAID, SELFPAY ==
--- OUTSIDE RECORDS SUMMARY | 2025-03-30 11:43 | XMS_ITS | Clinical Summary ---
Author Organization [facility] Address [address] [address] Phone Care Team Providers Care Capsule Filling Machine Operator Name Role Phone RockyRichard carrasco Primary Care Provider [phone] RockyRichard carrasco DO Unavailable Allergies No known active allergies Medications ibuprofen (ADVIL,MOTRIN) 800 MG tablet Take 1 tablet (800 mg total) by mouth 3 (three) times a day for 3 days. then tid prn. 30 tablet 3 Active cyclobenzaprine (FLEXERIL) 10 MG tablet Take 1 tablet (10 mg total) by mouth 3 (three) times a day as needed (muscle). 15 tablet 3 Active Additional Information Patient not taking.Reported on 04/27/2024 levothyroxine (SYNTHROID, LEVOTHROID) 150 MCG tablet Take 150 mcg by mouth every morning. Active Active Problems No known active problems Encounters Date Type Department Care Team Description 01/10/2025 Transcribe Orders [facility] Endocrinology [address] [place] [address] [place] [address] Soraida Jones PA Other specified hypothyroidism (Primary Dx) from Last 3 Months Immunizations Immunization Administration Dates Next Due DTaP 11/01/2005, 3,05/05/2002,2001,2001 Hepatitis B, unspecified formulation 08/10/2002, 2001,2001 Hib,HbOC 03/10/2002 Hib,PRP-T 11/01/2002,05/15/2002 IPV 10/29/2006, 3,03/10/2002,2001 MMR 11/01/2005,02/11/2003 Pneumococcal conjugate, PCV 7 05/13/2003 ,11/01/2002,03/10/2002,2001 Tdap 07/28/2019,11/12/2012 Varicella 10/30/2007,11/01/2002 Social History Tobacco Use Types Packs/Day Years Used Date Smoking Tobacco: Never Smokeless Tobacco: Never Tobacco Cessation:Counseling Given: Not Answered Education Answer Date Recorded Are you interested in more education? Not on sunitha e 09/14/2022 Are you concerned about learning? Not on file 09/14/2022 No 09/14/2022 No 09/14/2022 Digital Access Answer Date Recorded No 10/15/2022 No 10/15/2022 Reliable internet access at home? Not on file 10/15/2022 Device with a working camera? Not on file Sex and Gender Information Value Date Recorded Sex Assigned at Not on file Legal Sex Male 5:37 AM EST Gender Identity Not on file Sexual Orientation Not on file Last Filed Vital Signs Vital Sign Reading Time Taken Comments Blood Pressure 124/83 04/27/2024 2:43 PM EST Pulse 80 04/27/2024 2:43 PM EST Temperature 36.4 C (97.5 F) 04/27/2024 2:43 PM EST Respiratory Rate 18 04/27/2024 2:43 PM EST Oxygen Saturation 96% 04/27/2024 2:43 PM EST Inhaled Oxygen Concentration - - Weight 215.5 kg (475 lb) 10/06/2022 11:30 AM EDT Height 193 cm (6' 3.98 ) 10/06/2022 11:30 AM EDT Body Mass Index 57.84 10/06/2022 11:30 AM EDT Plan of Treatment Health Maintenance Due Date Last Done Comments TSH LEVEL 2001 DEPRESSION SCREENING 2013 HPV VACCINES (1 - Male 3-dose series) 2016 MENINGOCOCCAL VACCINES (B) (1 of 2 - Standard) 2017 HEPATITIS C SCREENING 10/29/2019 HIV ONE-TIME SCREENING (18-65 YEARS) 10/29/2019 INFLUENZA VACCINE (#1) 2024 COVID-19 VACCINE (4 - 2025-26 season) 2025 06/28/2021, 10/11/2020, 09/20/2020 SMOKING Hx and SMOKELESS TOBACCO SCREENING 04/27/2025 04/27/2024 Adult Td,Tdap Booster 07/27/2029 07/28/2019, 013 HIB VACCINES Completed 11/01/2002, 04/19, 03/10/2002 PNEUMOCOCCAL VACCINES (0-49 years) Aged Out 05/13/2003, 11/01/2002, 03/10/2002, Additional history exists No longer eligible based on patient's age to complete this topic IPV VACCINES Completed 10/29/2006, 10/17, 03/10/2002, Additional history exists HEPATITIS A VACCINES Aged Out No long er eligible based on patient's age to complete this topic MENINGOCOCCAL VACCINES (ACWY) Aged Out No longer eligible based on patient's age to complete this topic Medical Devices Not on file Insurance [facility] PPO [facility] BLUE CROSS OUT OF STATE PPO Member Subscriber Plan / Payer (Ef fective 2021-) Name:Niall Cerna Relation to Subscriber:Self Name:Niall Cerna Payer ID:[id number] (NAIC) Type:PPO Address: [address] [employer] [place] CR[employer] OUT OF [facility] [place] [address] [place] [address] [facility] OUT OF [place] [address] [place] [address] [facility] PPO [facility] STATE PPO [facility] CIGNA DENTAL Care Teams Capsule Filling Machine Operator Relationship Specialty Start Date End Date Richard Boyle DO [email or web address] PCP - General Internal Medicine 05/25/22 Richard Boyle DO 05/25/22 Additional Source Comments The information contained in this document represents components of the legal health record. It is not the complete legal health record.[facility]
--- OUTSIDE RECORDS SUMMARY | 2025-03-30 11:43 | XMS_ITS | Clinical Summary ---
Author Organization [facility] up Address [address] [place] [address] Phone Care Team Providers Care Respiratory Director Name Role Phone Richard Boyle DO Primary Care Provider [phone] Allergies No known active allergies Medications tirzepatide, weight loss, (Zepbound) 10 mg/0.5 mL injectionIndicat ions:Class 3 severe obesity without serious comorbidity with body mass index (BMI) of 50.0 to 59.9 in adult ([facility] V24, [facility] V28) Inject 0.5 mL (10 mg total) under the skin every 7 (seven) days. 2 mL 5 Active tirzepatide, weight loss, (Zepbound) 10 mg/0.5 mL injectionIndicat ions:Class 3 severe obesity without serious comorbidity with body mass index (BMI) of 50.0 to 59.9 in adult ([facility] V24, [facility] V28) Inject 0.5 mL (10 mg total) under the skin every 7 (seven) days. 2 mL 5 03/02/20 25 Discontinu ed(Reorder ) Active Problems Problem Noted Date Diagnosed Date Class 3 severe obesity witho ut serious comorbidity with body mass index (BMI) of 50.0 to 59.9 in adult ([facility] V24, [facility] V28) 07/28/2024 Encounters Date Type Department Care Team Description 03/01/2025 Telephone Bariatric Surgery - [place] [address] [phone] Brisa Irving PA 03/01/[address] [facility] [address] [phone] Brisa Irving PA 02/21/2025 Telephone Bariatric Surgery [address] [phone] Brisa Irving PA 02/09/2025 9:00 AM EDT Office Visit Bariatric Surgery [address] [phone] Brisa Irving PA Class 3 severe obesity without serious comorbidity with body mass index (BMI) of 50.0 to 59.9 in adult (CMS/HCC V24, CMS/HCC V28) (Primary Dx) from [...] Sign Reading Time Taken Comments Blood Pressure 122/82 02/09/2025 8:59 AM EDT Pulse 80 02/09/2025 8:59 AM EDT Temperature 36.6 C (97.8 F) 07/28/2024 10:30 AM EDT Respiratory Rate - - Oxygen Saturation - - Inhaled Oxygen Concentration - - Weight 195 kg (430 lb) 02/09/2025 8:59 AM EDT Height 190.5 cm (6' 3 ) 02/09/2025 8:59 AM EDT Body Mass Index 53.75 02/09/2025 8:59 AM EDT Plan of Treatment Upcoming Encounters Date Type Department Care Team (Late st Contact Info) Description 07/13/2025 10:00 AM EST Office Visit Bariatric Surgery [address] [phone] Brisa Irving PA [address] [place] [phone] Health Maintenance Due Date Last Done Comments HPV Vaccines (1 - Male 3-dose series) 2016 Meningococcal B Vaccine (1 of 2 - Standard) 2017 Cholesterol Screening (Lipid Panel) 03/05/2024 HIV Screening 03/05/2024 Hepatitis C Screening 03/05/2024 Social Influencers of Health Screening 03/05/2024 Depression Screening 05/19/2024 COVID-19 Vaccine ( season) 2025 06/28/2021, 10/11/2020, 09/20/2020 Influenza Vaccine (#1) 2025 DTaP,Tdap,and Td Vaccines (8 - Td or Tdap) 07/27/2029 07/28/2019, 11/12/2012, 11/01/2005, Additional history exists RSV Immunization Adult Patients (1 - 1-dose 75+ series) 2076 Hepatitis B Vaccines Completed 08/10/2002, 2001, 2001 [...] patient's age to complete this topic Insurance [place] - [place] Care Teams Respiratory Director Relationship Specialty Start Date End Date Richard Boyle DO [address] [facility] [address] [place], [place] PCP - General Internal Medicine 07/28/24
--- OUTSIDE RECORDS SUMMARY | 2025-03-30 11:43 | XMS_ITS | Encounter Summary ---
Author Organization [facility] Address [address] [facility] [address] [place] [address] Phone Care Team Providers Care Seasoning Mixer Name Role Phone Richard Boyle DO Primary Care Provider [phone] Bigda, Richard Hebert DO Primary Care Provider [phone] Bigda, Richard Hebert DO Unavailable Bigda, Richard Hebert DO Unavailable Encounter Details Date Type Department Care Team (Late st Contact Info) Description 04/07/2019 Ancillary Orders Virtual Department [address] [place] [address] Eber Reynolds PA [address] [facility] [address] [place] [address] [email or web address] Social History Tobacco Use Types Packs/Day Years [...] on filedocumented in this encounter Care Teams Seasoning Mixer Relationship Specialty Start Date End Date Richard Boyle DO [email or web address] PCP - General 03/04/17 05/24/22 Richard Boyle DO PCP - General Internal Medicine 05/25/22 Richard Boyle DO [email or web address] 05/25/22 Richard Boyle DO [address] [place] [phone] Insurance Assigned Provider 07/23/19 10/05/22 documented as of this encounter Additional Source Comments The information contained in this document represents components of the legal health record. It is not the complete legal health record.[facility]
--- OUTSIDE RECORDS SUMMARY | 2025-03-30 11:43 | XMS_ITS | Encounter Summary ---
Author Organization [facility] Address [address] [facility] [address] [place] [phone] Phone Care Team Providers Care Wire Hanger Name Role Phone Richard Boyle Primary Care Provider [phone] Richard Boyle DO Unavailable Encounter Details Date Type Department Care Team (Latest Contact Info) Description 10/25/2022 Transcribe Orders Virtual Department [address] [place] [address] Soraida Jones PA [address] [place] [address] [place] [address] Other low back pain (Primary Dx); Abnormal LFTs Social History Tobacco Use Types Packs/Day Years Used Date Smoking Tobacco: Never Smokeless Tobacco: Never Education Answer Date Recorded Are you interested [...] on file documented as of this encounter Results * US ABDOMEN COMPLETE (ADULT) (11/08/2022 9:38 AM EDT) Anatomical Region Laterality Modality Abdomen Ultrasound 11/08/2022 12:0 5 PM EDT Impressions 11/08/2022 12:06 PM EDT Diffuse fatty liver. Mild splenomegaly. Narrative 11/08/2022 12:06 PM EDT US ABDOMEN COMPLETE (ADULT) TECHNIQUE: Abdominal Ultrasound Complete. COMPARISON: None FINDINGS: Liver: Diffuse fatty liver. No focal lesions. Main Portal Vein: Patent with normal direction of flow. Gallbladder: Normal. No gallstones or gallbladder wall thickening. Biliary: Normal. No intrahepatic or extrahepatic biliary ductal dilatation. The common bile duct measures 4 mm. Pancreas: Incompletely visualized. Spleen: Mild enlargement of the spleen at 13.8 cm. Kidneys: Normal. No stones or hydronephrosis. Aorta: Normal, where visualized sonographically. IVC: Normal intrahepatic segment. Procedure Note Jonnathan Chao MD, CJ - 11/08/2022 US ABDOMEN COMPLETE (ADULT) TECHNIQUE: Abdominal Ultrasound Complete. COMPARISON: None FINDINGS: Liver: Diffuse fatty liver. No focal lesions. Main Portal Vein: Patent with normal direction of flow. Gallbladder: Normal. No gallstones or gallbladder wall thickening. Biliary: Normal. No intrahepatic or extrahepatic biliary ductaldilatation. The common bile duct measures 4 mm. Pancreas: Incompletely visualized. Spleen: Mild enlargement of the spleen at 13.8 cm. Kidneys: Normal. No stones or hydronephrosis. Aorta: Normal, where visualized sonographically. IVC: Normal intrahepatic segment. IMPRESSION: Diffuse fatty liver. Mild splenomegaly. us Soraida BETANCUR IMG US ABDOMEN Final Resul t * XR LUMBOSACRAL SPINE 2-3 VIEWS (11/08/2022 9:29 AM EDT) Anatomical Region Laterality Modality L-spine Computed Radiogr aphy 11/10/2022 11:4 5 PM EDT Impressions 11/10/2022 11:46 PM EDT Mild lumbar spine degenerative change. Suspect L5 pars defects. Narrative 11/10/2022 11:46 PM EDT XR LUMBOSACRAL SPINE 2-3 VIEWS COMPARISON: None FINDINGS: ALIGNMENT: No spondylolisthesis. VERTEBRAE: Vertebral body heights preserved. DISCS: Disc height loss with endplate sclerosis and marginal osteophytes at L1- 2, L3-4 and L4-5. FACETS: Facet arthropathy at L4-5 and L5-S1. Suspected L5 pars defects. PARASPINAL SOFT TISSUES: Within normal limits. Procedure Note Jono Bentley MD - 11/10/2022 XR LUMBOSACRAL SPINE 2-3 VIEWS COMPARISON: None FINDINGS: ALIGNMENT: No spondylolisthesis. VERTEBRAE: Vertebral body heights preserved. DISCS: Disc height loss with endplate sclerosis and marginal osteophytesat L1-2, L3-4 and L4-5. FACETS: Facet arthropathy at L4-5 and L5-S1. Suspected L5 pars defects. PARASPINAL SOFT TISSUES: Within normal limits. IMPRESSION: Mild lumbar spine degenerative change. Suspect L5 pars defects. Soraida BETANCUR IMG XR SPINE Final Resul t documented in this encounter Visit Diagnoses Diagnosis Other low back pain- Primary Abnormal LFTs Other low back pain Abnormal LFTs documented in this encounter Care Teams Wire Hanger Relationship Specialty Start Date End Date Richard Boyle DO PCP - General Internal Medicine 05/25/22 Richard Boyle DO [email or web address] 05/25/22 documented as of this encounter Additional Source Comments The information contained in this document represents components of the legal health record. It is not the complete legal health record.[facility]
--- OUTSIDE RECORDS SUMMARY | 2025-03-30 11:43 | XMS_ITS | Encounter Summary ---
Author Organization [facility] Address [address] [place] [address] Care Team Providers Care Counsellors Name Role Phone Richard Boyle DO Primary Care Provider [phone] Reason for Visit * Reason Onset Date Comments Med Refill 03/01/2025 Encounter Details Date Type Department Care Team (Late st Contact Info) Description 03/01/2025 Telephone Bariatric Surgery - [address] [phone] Brisa Irving PA [address] [place] [phone] Social History Tobacco Use Types Packs/Day Years Used Date Smoking Tobacco: Never Assessed Sex and Gender Information Value Date Recorded Sex Assigned at Not on file Legal Sex Male 3:47 PM EDT Gender Identity Not on file Sexual Orientation Not on file documented as of this encounter Progress Notes * Ivonne Pena - 03/02/2025 1:05 PM EDT Patient did well on Zepbound 10 mgs and would like a refill. If appropriate, please send script for Zepbound 10 mgs to their pharmacy. The patient does have a follow up in 07/13/2025 Patient will require new prior auth from Medicaid. Previous PA was through old insurance - [facility]. documented in this encounter Plan of Treatment Upcoming Encounters Date Type Department Care Team (Late st Contact Info) Description 07/13/2025 10:00 AM EST Office Visit Bariatric Surgery [facility] [address] [phone] Brisa Irving PA [address] [place] [phone] documented as of this encounter Visit Diagnoses Not on filedocumented in this encounter Care Teams Counsellors Relationship Specialty Start Date End Date Richard Boyle DO [address] [facility] [address] [place], [place] PCP - General Internal Medicine 07/28/24 documented as of this encounter
[2025-03-30 13:04] LABS: MANUAL DIFF FLAG NO
[2025-03-30 13:18] LABS: Hematocrit 48.6 % (42.0-52.0); Hemoglobin 15.6 g/dl (14.0-18.0); Imm Gran Abs Auto 0.04 X10*3/uL (0.00-0.03); Imm Gran Pct Auto 0.5 % (0.0-0.4); Lymphocytes Absolute Auto 1.7 X10*3/uL (1.2-4.9); Mean Corpuscular HGB Conc 32.1 g/dl (31.0-36.0); Mean Corpuscular Hemoglobin 28.8 pg (27.0-33.0); Mean Corpuscular Volume 89.8 fL (80.0-98.0); NRBC Abs Auto 0.000 X10*3/uL (0.0-0.012); NRBC Pct Auto 0.0 /100WBC (0.0-0.2); Platelet Count 265 X10*3/uL (160-400); Red Blood Count 5.41 X10*6/uL (4.60-5.80); White Blood Count 7.7 X10*3/uL (4.8-10.8)
[2025-03-30 13:44] LABS: Alanine Aminotransferase 46 U/L (0-40); Albumin Level 4.9 g/dL (3.5-5.0); Alkaline Phosphatase 65 U/L (39-117); Anion Gap 10 (12-20); Aspartate Amino Transferase 31 U/L (5-37); Blood Urea Nitrogen 16 mg/dL (9-16); Calcium 9.4 mg/dL (8.4-10.2); Carbon Dioxide 30 mmol/L (22-29); Chloride 103 mmol/L (96-108); Estimated Glomerular Filt Rate > 60; Potassium 4.3 mmol/L (3.3-5.1); Sodium 139 mmol/L (135-145); Total Protein 7.9 g/dL (6.5-8.0)
[2025-03-30 14:47] LABS: Free T4 (Free Thyroxine) 0.82 ng/dL (0.71-1.85)
== END 2025-03-30 10:02 | disposition home or self-care (01) ==
LOC: HO.MANLDS 10:01
PROVIDERS: Visit Provider Physician Assistant
DX: E03.9 Hypothyroidism, unspecified (principal)
CPT/HCPCS: 36415; 80053; 84439; 84443; 85025